=== PATIENT | female | born 1945 | race Caucasian/White ===

== ENCOUNTER 2019-11-21 08:28 | Inpatient (IN) | payer MEDICARE, BC ==
[2019-11-13 15:49] LABS: BASOPHILS % (AUTO) 0.3 % (0-1); EOSINOPHILS # (AUTO) 0.1 X10'3 (0-0.9); EOSINOPHILS % (AUTO) 1.4 % (0-6); LYMPHOCYTES # (AUTO) 1.1 X10'3 (1.1-4.8); LYMPHOCYTES % (AUTO) 15.7 % (21-51); MEAN CORPUSCULAR HEMOGLOBIN 29.7 PG (27.0-31.0); MEAN CORPUSCULAR HGB CONC 33.2 g/dL (33.0-36.5); MEAN CORPUSCULAR VOLUME 89.4 FL (78-98); MEAN PLATELET VOLUME 11.8 FL (7.4-10.4); MONOCYTES # (AUTO) 0.5 X10'3 (0-0.9); MONOCYTES % (AUTO) 7.1 % (2-12); NEUTROPHILS # (AUTO) 5.3 X10'3 (1.8-7.7); NEUTROPHILS % (AUTO) 75.5 % (42-75); PRE OP HEMATOCRIT 41.2 % (35.0-45.0); PRE OP HEMOGLOBIN 13.7 g/dL (12.0-16.0); RED BLOOD COUNT 4.61 X10'6 (4.20-5.60); RED CELL DISTRIBUTION WIDTH 14.9 % (11.5-14.5)
[2019-11-13 15:56] LABS: PRE OP PROTIME 10.4 SECONDS (9.0-12.0)
[2019-11-13 16:01] LABS: ALBUMIN 3.8 G/DL (3.4-5.0); ALKALINE PHOSPHATASE 90 IU/L (46-116); BLOOD UREA NITROGEN 25 MG/DL (7-18); BUN/CREATININE RATIO 38.5 (6.6-38.0); CALCIUM 9.4 MG/DL (8.5-10.1); CHLORIDE 104 MMOL/L (99-107); CREATININE 0.65 MG/DL (0.40-0.90); PRE OP ALT 18 U/L (30-65); PRE OP ANION GAP 7 (8-16); PRE OP AST 18 U/L (10-37); PRE OP BILIRUB, TOTAL 0.3 MG/DL (0.0-1.0); PRE OP GLUCOSE 94 MG/DL (70-104); PRE OP SODIUM 141 MMOL/L (135-145); TOTAL CARBON DIOXIDE 29.7 MMOL/L (24-32); TOTAL PROTEIN 7.8 G/DL (6.4-8.2); eGFR 89 ML/MIN
[2019-11-13 16:06] LABS: PRE OP POTASSIUM 3.3 MMOL/L (3.4-5.1)
[2019-11-13 16:39] LABS: PRE OP PLATELET COUNT 88 X10'3 (140-440)
[2019-11-21] VITALS (15 sets, daily range): BP systolic 127–154; BP diastolic 71–84
[~2019-11-21] VITALS: Ht 157.5 cm; Wt 88.7 kg
[~2019-11-21 08:28] MED LIST: ATEN-169 PO; CHOL10006 PO; DESV100T4 PO; DOCUMENT DATE & TIME OF BETA-BLOCKER PO ONE; FERR-39 PO; HYDR25TA4 PO; LOSA50TA3 PO; MULT-1133 PO; POTA8TAB3 PO; clindamycin-Cleocin 900mg/D5W 50 ML IV ONE; famotidine 20mg tablet PO ONE; ringers solution, lacted 1,000 ML IV SCH; vancomycin inj 1,500 MG in normal saline 300ml IV soln IV ONE
[2019-11-21 09:38] LABS: BASOPHILS % (AUTO) 0.6 % (0-1); EOSINOPHILS # (AUTO) 0.2 X10'3 (0-0.9); EOSINOPHILS % (AUTO) 2.2 % (0-6); HEMATOCRIT 39.9 % (35.0-45.0); HEMOGLOBIN 13.4 g/dl (12.0-16.0); LYMPHOCYTES # (AUTO) 0.9 X10'3 (1.1-4.8); LYMPHOCYTES % (AUTO) 12.7 % (21-51); MEAN CORPUSCULAR HEMOGLOBIN 30.1 PG (27.0-31.0); MEAN CORPUSCULAR HGB CONC 33.7 g/dL (33.0-36.5); MEAN CORPUSCULAR VOLUME 89.2 FL (78-98); MEAN PLATELET VOLUME 12.3 FL (7.4-10.4); MONOCYTES # (AUTO) 0.6 X10'3 (0-0.9); MONOCYTES % (AUTO) 7.5 % (2-12); NEUTROPHILS # (AUTO) 5.7 X10'3 (1.8-7.7); PLATELET COUNT 96 X10'3 (140-440); RED BLOOD COUNT 4.47 X10'6 (4.20-5.60); RED CELL DISTRIBUTION WIDTH 14.8 % (11.5-14.5); WHITE BLOOD COUNT 7.3 X10'3 (4.5-11.0)
[2019-11-21] MEDS ORDERED: ringers solution, lacted 1,000 ML IV SCH (09:48)
[2019-11-21] MEDS ORDERED: HYDROmorphone inj. 0.5 MG/0.5 ML DISP.SYRIN IV PRN ×3 (09:50→13:20)
[2019-11-21] MEDS ORDERED: meperidine/PF 25mg/ml syringe IV PRN (09:50)
[2019-11-21] MEDS ORDERED: proCHLORperazine 10 MG/2 ml inj IV PRN (09:50)
[2019-11-21] MEDS ORDERED: ondansetron/PF 4mg/2ml inj IV PRN ×2 (09:50→13:20)
[2019-11-21] MEDS ORDERED: acetaminophen 1,000mg/100ml IV 100 ML IV PRN (09:50)
[2019-11-21] MEDS ORDERED: morphine 2 MG/ML inj. syringe IV PRN (09:50)
[2019-11-21] MEDS ORDERED: morphine 4 MG/ML inj SYRINge IV PRN (09:50)
[2019-11-21 09:52] LABS: ALANINE AMINOTRANSFERASE 19 U/L (12-78); ALBUMIN 3.7 G/DL (3.4-5.0); ALKALINE PHOSPHATASE 81 IU/L (46-116); ANION GAP 9 (8-16); ASPARTATE AMINO TRANSFERASE 22 U/L (10-37); BILIRUBIN,TOTAL 0.3 MG/DL (0.1-1.0); BLOOD UREA NITROGEN 25 MG/DL (7-18); BUN/CREATININE RATIO 36.2 (6.6-38.0); CALCIUM 9.1 MG/DL (8.5-10.1); CHLORIDE 106 MMOL/L (99-107); CREATININE 0.69 MG/DL (0.40-0.90); GLUCOSE 100 MG/DL (70-104); SODIUM 143 MMOL/L (135-145); TOTAL CARBON DIOXIDE 28.3 MMOL/L (24-32); TOTAL PROTEIN 7.4 G/DL (6.4-8.2); eGFR 83 ML/MIN
[2019-11-21 09:56] LABS: POTASSIUM 3.7 MMOL/L (3.5-5.1)
[2019-11-21] MEDS ORDERED: tranexamic acid inj. 1,000 MG in normal saline 100ml IV soln 100 ML IV STA (10:46)
[2019-11-21] MEDS ORDERED: ketorolac trometh. 30mg/ml inj. ONE (10:52)
[2019-11-21] MEDS ORDERED: epiNEPHrine 1 mg/ml inj ONE (10:52)
[2019-11-21] MEDS ORDERED: ROPIVAcaine 0.5% (5mg/ml) 30ml vial ONE ×2 (10:53→13:48)
[2019-11-21] MEDS ORDERED: vancomycin 1,000mg inj ONE (10:53)
[2019-11-21] MEDS ORDERED: morphine 10mg/ml inj. ONE (10:53)
[2019-11-21] MEDS ORDERED: BUPIVAcaine/PF 7.5mg/ml (0.75%) 10ml vial ONE (10:55)
[2019-11-21] MEDS ORDERED: LIDOcaine 1% (10mg/ml) 2ml vial ONE (11:48)
[2019-11-21] MEDS ORDERED: midazolam 2 mg/2 ml injection ONE (11:48)
[2019-11-21] MEDS ORDERED: LIDOcaine 1%/PF 5ML 10 MG/ML VIAL ONE (11:48)
[2019-11-21] MEDS ORDERED: propofol inj 20 ML IV ONE ×3 (11:48)
[2019-11-21] MEDS ORDERED: calcium chloride 100 MG/1 ML inj IV ONE (11:59)
[2019-11-21] MEDS ORDERED: ROPIVAcaine 0.2% (10 MG/5 ML) BOLUS INJECTION ADDCANAL PRN (12:05)
[2019-11-21] MEDS ORDERED: bisacodyl 10mg suppository rectal RC PRN (13:20)
[2019-11-21] MEDS ORDERED: HYDROmorphone 1 mg/ml syringe IV PRN (13:20)
[2019-11-21] MEDS ORDERED: magnesium hydroxide 30ml (MOM) UD suspension PO PRN (13:20)
[2019-11-21] MEDS ORDERED: acetaminophen 325mg tablet PO PRN (13:20)
[2019-11-21] MEDS ORDERED: diphenhydrAMINE 25mg capsule PO PRN ×2 (13:20)
--- NOTE | 2019-11-21 13:55 | NUR ---
Received from OR via BED , accompanied by Anesthesiologist DR MENDIOLA and report given by Anesthesiolgist. PATIENT WAKING UP, DENIES PAIN, V/S WNL, NEUROVASCULAR CHECKS INTACT, 18G PIV LUE , YOU DRESSING TO RIGHT KNEE CDI W/ COLD POWDER PACK AND ON QUE PUMP AT 4ML/HR , LOVE. F/C DRAINING CLEAR YELLOW URINE.
[2019-11-21] MEDS: acetaminophen 325mg tablet PO SCH ×2 (14:00→20:12)
--- NOTE | 2019-11-21 14:45 | NUR ---
PATIENT A&OX4, DENIES PAIN, V/S WNL, NEUROVASCULAR CHECKS INTACT, 18G PIV LUE , YOU DRESSING TO RIGHT KNEE CDI W/ COLD POWDER PACK AND ON QUE PUMP AT 4ML/HR , LOVE. F/C DRAINING CLEAR YELLOW URINE. PATIENT TAKEN TO WITH ALL BELONGINGS AND HOOKED UP TO MONITORS IN ROOM AND REPORT GIVEN TO STUDENT SERVICES DEAN WHO HAS TAKEN OVER PATIENT CARE.
[2019-11-21] MEDS: oxyCODONE IR 5mg (immed. release) tablet PO PRN ×2 (15:07→21:19)
[2019-11-21] MEDS ORDERED: tranexamic acid inj. 1,000 MG in normal saline 100ml IV soln 100 ML IV ONE (16:20)
--- NOTE | 2019-11-21 18:30 | NUR ---
Patient in room [facility]TH[facility] 4024. I have received report from Samantha FAN and had the opportunity to ask questions and assume patient care.
--- NOTE | 2019-11-21 18:31 | NUR ---
Problems reprioritized. Patient report given, questions answered & plan of care reviewed with MENG Poole.
[2019-11-21] MEDS: potassium cl 20mEq in 1/2 NS 1,000 ML IV SCH ×2 (18:46→21:18)
[2019-11-21] MEDS ORDERED: vancomycin/NS 1 GM ADD-VANTAGE 250 ML IV SCH (20:00)
[2019-11-21] MEDS ORDERED: acetaminophen 1,000mg/100ml IV 100 ML IV SCH (20:00)
[2019-11-21] MEDS: venlafaxine 25mg tablet PO SCH (20:11)
[2019-11-21] MEDS: atenolol 25mg tablet PO SCH (20:11)
[2019-11-21] MEDS: gabapentin 300mg capsule PO SCH (20:13)
[2019-11-21] MEDS: sennosides 8.6mg tablet PO SCH (20:13)
[2019-11-21] MEDS: ROPIVAcaine 0.2%/PF PUMP/bolus 550 ML ADDCANAL SCH (20:14)
[2019-11-22] VITALS (7 sets, daily range): BP systolic 106–160; BP diastolic 56–72
[2019-11-22] MEDS: oxyCODONE IR 5mg (immed. release) tablet PO PRN ×5 (01:42→23:01)
[2019-11-22] MEDS: acetaminophen 325mg tablet PO SCH ×6 (02:14→21:07)
[2019-11-22] MEDS: potassium cl 20mEq in 1/2 NS 1,000 ML IV SCH ×3 (03:44→21:18)
--- NOTE | 2019-11-22 05:54 | NUR ---
DC'D Manning catheter per protocol. HR RECRUITER turned up ON-Q pump to 8ml/hr.
[2019-11-22 06:10] LABS: BASOPHILS % (AUTO) 0.2 % (0-1); EOSINOPHILS # (AUTO) 0.2 X10'3 (0-0.9); EOSINOPHILS % (AUTO) 2.8 % (0-6); HEMATOCRIT 32.9 % (35.0-45.0); HEMOGLOBIN 11.1 g/dl (12.0-16.0); LYMPHOCYTES # (AUTO) 0.9 X10'3 (1.1-4.8); LYMPHOCYTES % (AUTO) 12.4 % (21-51); MEAN CORPUSCULAR HEMOGLOBIN 30.4 PG (27.0-31.0); MEAN CORPUSCULAR HGB CONC 33.7 g/dL (33.0-36.5); MEAN CORPUSCULAR VOLUME 90.1 FL (78-98); MEAN PLATELET VOLUME 11.7 FL (7.4-10.4); MONOCYTES # (AUTO) 0.5 X10'3 (0-0.9); MONOCYTES % (AUTO) 7.2 % (2-12); NEUTROPHILS # (AUTO) 5.8 X10'3 (1.8-7.7); NEUTROPHILS % (AUTO) 77.4 % (42-75); PLATELET COUNT 70 X10'3 (140-440); RED BLOOD COUNT 3.65 X10'6 (4.20-5.60); WHITE BLOOD COUNT 7.5 X10'3 (4.5-11.0)
--- NOTE | 2019-11-22 06:40 | NUR ---
Problems reprioritized. Patient report given, questions answered & plan of care reviewed with Jewels FAN.
[2019-11-22 06:43] LABS: ANION GAP 8 (8-16); CHLORIDE 108 MMOL/L (99-107); POTASSIUM 3.6 MMOL/L (3.5-5.1); SODIUM 144 MMOL/L (135-145); TOTAL CARBON DIOXIDE 27.6 MMOL/L (24-32)
[2019-11-22] MEDS ORDERED: LUTEIN PO SCH (08:00)
[2019-11-22] MEDS ORDERED: [UNRECOGNIZED DRUG - OTHER] PO SCH (08:00)
[2019-11-22] MEDS ORDERED: MULTIVITS MIN PO SCH (08:00)
[2019-11-22] MEDS ORDERED: IRON PO SCH (08:00)
[2019-11-22] MEDS: ferrous sulfate 325mg tablet PO SCH (08:14)
[2019-11-22] MEDS: gabapentin 300mg capsule PO SCH ×3 (08:14→21:07)
[2019-11-22] MEDS: potassium chloride 8mEq ER tablet PO SCH (08:14)
[2019-11-22] MEDS: atenolol 25mg tablet PO SCH ×2 (08:15→21:08)
[2019-11-22] MEDS: multivitamins, therapeutics tablet PO SCH (08:15)
[2019-11-22] MEDS: aspirin 325mg tablet PO SCH (08:15)
[2019-11-22] MEDS: HYDROchlorothiazide 25mg tablet PO SCH (08:15)
[2019-11-22] MEDS: vitamin D (cholecalciferol) 1,000 unit tablet PO SCH (08:15)
[2019-11-22] MEDS: losartan 50mg tablet PO SCH (08:15)
[2019-11-22] MEDS: venlafaxine 25mg tablet PO SCH ×3 (08:16→21:07)
[2019-11-22] MEDS ORDERED: ASPI-1 PO (09:24)
[2019-11-22] MEDS ORDERED: ONQPUMP ADDCANAL (09:25)
--- NOTE | 2019-11-22 14:27 | NUR ---
Joint Replacement Consult: Pt seen by RD for written/verbal high protein ed w/ RD contact information provided. Pt placed on full liquids now advanced to regular diet to start after lunch today. Pt endorses good appetite and requests jello as well as vietnamese ice and is agreeable to ensure puddings BIDLD; dietary notified. [facility] 11/20. Will continue to monitor. Addendum: 11/22/19 at [address] Amended: Links added.
--- NOTE | 2019-11-22 18:28 | NUR ---
Problems reprioritized. Patient report given, questions answered & plan of care reviewed with Zulema FAN.
--- NOTE | 2019-11-22 18:36 | NUR ---
Patient in room ORTHO 4024. I have received report from Jewels FAN and had the opportunity to ask questions and assume patient care.
[2019-11-22] MEDS: sennosides 8.6mg tablet PO SCH (21:00)
[2019-11-22] MEDS: celeCOXIB 100mg capsule PO SCH (21:07)
[2019-11-23] MEDS: acetaminophen 325mg tablet PO SCH ×2 (02:22→08:17)
[2019-11-23] MEDS: oxyCODONE IR 5mg (immed. release) tablet PO PRN ×2 (04:31→12:27)
[2019-11-23 06:00] VITALS: BP 141/70
--- NOTE | 2019-11-23 06:12 | NUR ---
Problems reprioritized. Patient report given, questions answered & plan of care reviewed with Дмитрий FAN.
[2019-11-23] MEDS: atenolol 25mg tablet PO SCH (08:16)
[2019-11-23] MEDS: gabapentin 300mg capsule PO SCH ×2 (08:16→12:27)
[2019-11-23] MEDS: multivitamins, therapeutics tablet PO SCH (08:17)
[2019-11-23] MEDS: losartan 50mg tablet PO SCH (08:17)
[2019-11-23] MEDS: HYDROchlorothiazide 25mg tablet PO SCH (08:17)
[2019-11-23] MEDS: celeCOXIB 100mg capsule PO SCH (08:17)
[2019-11-23] MEDS: vitamin D (cholecalciferol) 1,000 unit tablet PO SCH (08:17)
[2019-11-23] MEDS: potassium chloride 8mEq ER tablet PO SCH (08:17)
[2019-11-23] MEDS: ferrous sulfate 325mg tablet PO SCH (08:18)
[2019-11-23] MEDS: aspirin 325mg tablet PO SCH (08:18)
[2019-11-23] MEDS: venlafaxine 25mg tablet PO SCH ×2 (08:18→12:27)
[2019-11-23 08:24] LABS: BASOPHILS % (AUTO) 0.1 % (0-1); EOSINOPHILS # (AUTO) 0.5 X10'3 (0-0.9); EOSINOPHILS % (AUTO) 5.9 % (0-6); HEMATOCRIT 34.2 % (35.0-45.0); HEMOGLOBIN 11.4 g/dl (12.0-16.0); LYMPHOCYTES # (AUTO) 0.7 X10'3 (1.1-4.8); LYMPHOCYTES % (AUTO) 7.8 % (21-51); MEAN CORPUSCULAR HEMOGLOBIN 30.2 PG (27.0-31.0); MEAN CORPUSCULAR HGB CONC 33.4 g/dL (33.0-36.5); MEAN CORPUSCULAR VOLUME 90.6 FL (78-98); MEAN PLATELET VOLUME 11.2 FL (7.4-10.4); MONOCYTES # (AUTO) 0.7 X10'3 (0-0.9); NEUTROPHILS # (AUTO) 6.8 X10'3 (1.8-7.7); NEUTROPHILS % (AUTO) 78.2 % (42-75); PLATELET COUNT 73 X10'3 (140-440); RED BLOOD COUNT 3.78 X10'6 (4.20-5.60); RED CELL DISTRIBUTION WIDTH 15.4 % (11.5-14.5); WHITE BLOOD COUNT 8.8 X10'3 (4.5-11.0)
[2019-11-23 10:00] VITALS: BP 125/75
[2019-11-23 10:36] LABS: LARGE PLATELETS FEW; PLATELET ESTIMATE DECREASED
[2019-11-23] MEDS: ROPIVAcaine 0.2%/PF PUMP/bolus 550 ML ADDCANAL SCH (12:01)
[2019-11-23] MEDS ORDERED: acetaminophen 325mg tablet PO PRN (13:20)
--- NOTE | 2019-11-23 15:14 | NUR ---
Patient stable for discharge. Belongings gathered and sent home with patient. D/C teaching completed. PIV removedm cannula intact.
== END 2019-11-23 13:30 | disposition home health service (06) | DRG 470 ==
LOC: PAS IN 08:28 → EDSTATUS 13:00 → ORTHO 4S 14:54
PROVIDERS: ADMIT Orthopaedic Surgery; ATTEND Orthopaedic Surgery
PROC: 0SRC069 Replacement of Right Knee Joint with Oxidized Zirconium on Polyethylene Synthetic Substitute, Cemented, Open Approach (ICD-10-PCS; principal; 2019-11-21 10:55)
DX: M17.11 Unilateral primary osteoarthritis, right knee (principal); D62 Acute posthemorrhagic anemia; I10 Essential (primary) hypertension; F32.9 Major depressive disorder, single episode, unspecified
CPT/HCPCS: 36415; 80051; 80053; 85025; 85610; 85730; 87081; 93005; 97110; 97116; 97161; 97530; A4215; A6454; A7000; C1713; C1758; C1776; G0378; J0131; J0171; J1885; J2001; J2250; J2270; J2704; J2795; J3370; J3480; J3490; J7120

== ENCOUNTER 2021-12-04 17:44 | Emergency (ER) | payer MEDICARE, BC ==
[~2021-12-04] VITALS: Ht 157.5 cm; Wt 93.0 kg
[~2021-12-04 17:44] MED LIST changes: +ASPI-1 PO; -DOCUMENT DATE & TIME OF BETA-BLOCKER PO ONE; +ONQPUMP ADDCANAL; -POTA8TAB3 PO; +POTA8TAB69 PO; -clindamycin-Cleocin 900mg/D5W 50 ML IV ONE; -famotidine 20mg tablet PO ONE; -ringers solution, lacted 1,000 ML IV SCH; -vancomycin inj 1,500 MG in normal saline 300ml IV soln IV ONE
[2021-12-04 19:31] VITALS: BP 184/102
[2021-12-04] MEDS ORDERED: bacitracin 15gm ointment TP ONE (19:55)
[2021-12-04] MEDS ORDERED: TETanus/Pertussis (Acell)/Diphther VAC/PF (Tdap-Adult) 0.5ml syringe IMVAC ONE (19:55)
[2021-12-04] MEDS ORDERED: DOXYCYCLINE 100MG CAPSULE PO STA (20:17)
[2021-12-04] MEDS ORDERED: CLIN300C70 PO (20:20)
[2021-12-04] MEDS ORDERED: clindamycin 150mg capsule PO ONE (20:20)
[2021-12-04] MEDS ORDERED: DOXY150T5 PO (20:20)
== END 2021-12-04 20:35 | disposition home or self-care (01) ==
LOC: ER 17:45
DX: S61.212A Laceration without foreign body of right middle finger without damage to nail, initial encounter (principal); M19.90 Unspecified osteoarthritis, unspecified site; Z88.0 Allergy status to penicillin; Z79.82 Long term (current) use of aspirin; Z79.2 Long term (current) use of antibiotics; Z79.899 Other long term (current) drug therapy; W54.0XXA Bitten by dog, initial encounter; Y93.89 Activity, other specified; Y92.89 Other specified places as the place of occurrence of the external cause; Y99.8 Other external cause status
CPT/HCPCS: 90471; 90715; 99284